=== PATIENT | male | born 1980 | race Caucasian/White ===

== ENCOUNTER → 2021-12-04 | Outpatient (CLI) | payer BC ==
--- NOTE | 2021-12-04 10:34 | CA ---
Stress Echo Report Stew Jameson Age: 41 Gender: M : 1980 Exam Date: 12/04/2021 09:37 Exam Location: [facility] Ht (in): 64 Wt (lb): 220 Ordering Physician: Chano Cottrell MD Referring Physician: Simba SEGURA [employer]: Juana Mcnamara RDCS Technologist Procedure CPT: Indication: R030 Elevated blood-pressure reading, without diag ICD-9 Codes: Rhythm: Patient History: Cardiac Medications: Medications in past 24 hours: Contrast: Lumason Stress Results Protocol: Jaime Total dose(mL): 5 Exercise Duration (min:sec): 6.[address] Depression (mm): Angina Score: Dominguez Score: METS: 7.3 Resting HR: 101 Resting BP: 148 / 84 Peak HR: 165 Peak BP: 195 / 109 Max Predicted HR: 178 93 % Max Predicted HR Target HR: 151 Double Product: [id number] Stress Summary: BP Response: Reason for Termination: Pt reached target hr. Cardiac Symptoms: SOB ECG Analysis Resting ECG: Stress ECG: Arrhythmia: Echo Analysis Resting Echo: Peak Echo Analysis: MEASUREMENTS (Male/Female) Normal Values CONCLUSIONS Baseline EKG revealed normal sinus rhythm without significant ST-T changes. Patient walked on a standard Jaime protocol for 6 minutes and achieved a maximal heart rate of 165 bpm which is available 85% of his predicted maximal. Peak blood pressure was 195/109. Patient did not have angina. He developed fatigue and shortness of breath. EKG did not reveal any ST segment changes to indicate ischemia. This is a negative stress test with limited x-rays capacity by EKG criteria Baseline echo images revealed normal wall motion wall thickening. Echo contrast was used to optimize quality of images. At peak exercise there was good augmentation of left and wall motion wall thickening of all segments suggesting that there is no evidence of any stress-induced ischemia on this study. Final impression: Negative stress test by EKG criteria with limited x-rays capacity Normal stress echocardiogram Dr. Isadora Wayne MD (Electronically Signed) Final Date: 04 December 2021 10:33
== END | disposition home or self-care (01) ==
LOC: RADNMMAIN 09:10
PROVIDERS: ATTEND Family Medicine
DX: R03.0 Elevated blood-pressure reading, without diagnosis of hypertension (principal)
CPT/HCPCS: 93351; Q9950